=== PATIENT | female | born 1995 | race Caucasian/White ===

== ENCOUNTER 2018-09-08 11:46 | Emergency (ER) | payer OTHER ==
[~2018-09-08] VITALS: Ht 170.2 cm; Wt 126.5 kg
[2018-09-08] MEDS ORDERED: WELLBUTRIN SR100 MG PO (12:03)
[2018-09-08] MEDS ORDERED: VISTARIL 25 MG25 M1 PO (12:03)
[2018-09-08] MEDS ORDERED: ADDERALL 20 MG20 M1 PO (12:03)
[2018-09-08] MEDS ORDERED: VALIUM5 MG PO (12:03)
[2018-09-08 13:17] VITALS: BP 126/60
== END 2018-09-08 13:19 | disposition home or self-care (01) ==
LOC: M.ERS 11:46
DX: M25.531 Pain in right wrist (principal); F17.210 Nicotine dependence, cigarettes, uncomplicated; Z88.0 Allergy status to penicillin